=== PATIENT | female | born 1960 | race Caucasian/White ===

== ENCOUNTER 2017-01-01 09:30 | Emergency (ER) | payer OTHER ==
[~2017-01-01] VITALS: Ht 157.5 cm; Wt 69.0 kg
[~2017-01-01 09:30] MED LIST: ASPI-664 PO; GABA300C16 PO; METF1000 PO; NIAC500T81 PO; RANI150C11 PO; SIMV40TA3 PO; TRAM50TA2 PO
[2017-01-01 09:32] VITALS: Ht 157.5 cm; Wt 69.0 kg
--- NOTE | 2017-01-01 11:02 | ERD ---
ER Documentation Chief Complaint Date/Time DATE: 01/01/17 TIME: 10:45 Chief Complaint intermittent diarrhea x 2 monthd HPI 56 y/o female with history of DM and HTN. Presents to ED c/o 2 months with intermittent episodes of watery, green diarrhea approx. x4/day. Denies blood or mucus. No fever, chills, no abdominal pain. Treatment attempted: Pepto Bismol with moderate improvement, no sick contact. No history of recent traveling. States that 4 months ago had a Salmonella infection and the symptoms are similar. (+) suspicious food. ROS All systems reviewed and are negative except as per history of present illness. Medications Home Meds Reported Medications Simvastatin (Simvastatin) 40 Mg Tablet, 40 MG PO HS 07/21/12 Niacin* (Niacin*) 500 Mg Tablet, 500 MG PO DAILY 07/21/12 Gabapentin* (Gabapentin*) 300 Mg Capsule, 300 MG PO BID 07/21/12 Tramadol HCl (Tramadol HCl) 50 Mg Tablet, 50 MG PO DAILY 07/21/12 Ranitidine Hcl (Ranitidine Hcl) 150 Mg Capsule, 150 MG PO BID 07/21/12 Metformin Hcl* (Metformin Hcl*) 1,000 Mg Tablet, 1000 MG PO BID 07/21/12 Aspirin* (Aspirin* EC) 81 Mg Tablet.dr, 81 MG PO DAILY 07/21/12 [Unk] No Conflict Check 04/03/09 Allergies Allergies: Coded Allergies: No Known Drug Allergies (Verified Allergy, Mild, 01/01/17) PMhx/Soc History of Surgery: Yes (CARDIAC CATH,c SECTION,R CATARACT) Hx Neurological Disorder: No Hx Respiratory Disorders: No Hx Cardiac Disorders: Yes (CAD) Hx Miscellaneous Medical Probl: Yes (Htn, DM, Arthritis, Osteoporosis) Hx Alcohol Use: No Hx Substance Use: No Hx Tobacco Use: No Smoking Status: Never smoker Physical Exam Vitals Vital Signs Date Time Temp Pulse Resp B/P Pulse Ox O2 Delivery O2 Flow Rate FiO2 01/01/17 09:32 97.8 96 16 142/60 97 Physical Exam Const: [] Head: Atraumatic Eyes: Normal Conjunctiva ENT: Normal External Ears, Nose and Mouth. Neck: Full range of motion..~ No meningismus. Resp: Clear to auscultation bilaterally Cardio: Regular rate and rhythm, no murmurs Abd: Soft, non tender, non distended. Normal bowel sounds Skin: No petechiae or rashes Back: No midline or flank tenderness Ext: No cyanosis, or edema Neur: Awake and alert Psych: Normal Mood and Affect Procedures/MDM Low suspicion for acute abdomen. Physical exam unremarkable. Per patient, Colonoscopy 1 year ago WNL. Differential includes viral, bacterial infection, medications side effects, gastroparesis. We recommend f/u with PMD in 4-7 days. If the doctor is unavailable and the symptoms persist or worsen, the patient should return to ED Departure Diagnosis: Primary Impression: Gastroenteritis, infectious, presumed Additional Impression: Diarrhea Condition: Stable DINA MCKEON MD Jan 01, 2017 10:58
[2017-01-01] MEDS ORDERED: CIPR500T4 PO (11:04)
[2017-01-01] MEDS ORDERED: DIPH1TAB PO (11:04)
[2017-01-01] MEDS ORDERED: GUAI120L41 PO (11:55)
[2017-01-01 11:59] VITALS: BP 129/66; PULSE 72; RESP 19; TEMP 98.4
== END 2017-01-01 12:00 | disposition home or self-care (01) ==
LOC: FTE 09:30
DX: R19.7 Diarrhea, unspecified (principal); I25.10 Atherosclerotic heart disease of native coronary artery without angina pectoris; I10 Essential (primary) hypertension; E11.9 Type 2 diabetes mellitus without complications; Z79.82 Long term (current) use of aspirin; Z79.84 Long term (current) use of oral hypoglycemic drugs
CPT/HCPCS: 99283

== ENCOUNTER 2018-10-15 17:25 | Emergency (ER) | payer OTHER ==
[~2018-10-15] VITALS: Ht 160 cm; Wt 74.5 kg
[~2018-10-15 17:25] MED LIST changes: -ASPI-664 PO; +ASPI-817 PO; +CIPR500T4 PO; +DIPH1TAB PO; +GUAI120L41 PO; -METF1000 PO; +METF100010 PO
[2018-10-15 18:40] VITALS: Ht 160 cm; Wt 74.5 kg
--- NOTE | 2018-10-15 19:56 | EN ---
Date/Time of Note Date/Time of Note DATE: 10/15/18 TIME: 19:55 ER Progress Note 58-year-old female with history of diabetes insulin dependent, hypertension, hyperlipidemia presents for bilateral leg swelling and pain x1 week. She went to her primary care doctor about 2 days ago was given injections into both feet however she states that the pain has not improved. Medical screening exam initiated and lab/imaging tests ordered. Patient will be seen by another provider. AISLINN MAZARIEGOS DO Oct 15, 2018 19:56
[2018-10-15] MEDS ORDERED: POTA10TA37 PO (21:44)
[2018-10-15] MEDS ORDERED: FURO-110 PO (21:44)
--- NOTE | 2018-10-15 21:47 | ERD ---
ER Documentation Chief Complaint Chief Complaint TOE INJ ROS All systems reviewed and are negative except as per history of present illness. Medications Home Meds Active Scripts Potassium Chloride* (K-Dur*) 10 Meq Tab.prt.sr, 10 MEQ PO DAILY for 14 Days, #14 TAB Prov:AISLINN MAZARIEGOS DO 10/15/18 Furosemide* (Lasix*) 20 Mg Tablet, 20 MG PO DAILY for leg swelling, #14 TAB Prov:AISLINN MAZARIEGOS 10/15/18 Guaifenesin/Codeine Phosphate (Codeine-Guaifen 10-100 mg/5 ml) 120 Ml Liquid, 120 ML PO QHS PRN for COUGH for 5 Days Prov:DINA MCKEON MD 01/01/17 Diphenoxylate HCl/Atropine (Lomotil 2.5-0.025 mg Tablet) 1 Each Tablet, 1 TAB PO Q6H PRN for DIARRHEA for 5 Days, TAB Prov:DINA MCKEON MD 01/01/17 Ciprofloxacin Hcl* (Ciprofloxacin Hcl*) 500 Mg Tablet, 250 MG PO BID for 5 Days, TAB Prov:DINA MCKEON MD 01/01/17 Reported Medications Simvastatin (Simvastatin) 40 Mg Tablet, 40 MG PO HS 07/21/12 Niacin* (Niacin*) 500 Mg Tablet, 500 MG PO DAILY 07/21/12 Gabapentin* (Gabapentin*) 300 Mg Capsule, 300 MG PO BID 07/21/12 Tramadol HCl (Tramadol HCl) 50 Mg Tablet, 50 MG PO DAILY 07/21/12 Ranitidine Hcl (Ranitidine Hcl) 150 Mg Capsule, 150 MG PO BID 07/21/12 Metformin Hcl* (Metformin Hcl*) 1,000 Mg Tablet, 1000 MG PO BID 07/21/12 Aspirin* (Aspirin* EC) 81 Mg Tablet.dr, 81 MG PO DAILY 07/21/12 [Unk] No Conflict Check 04/03/09 Allergies Allergies: Coded Allergies: No Known Drug Allergies (Verified Allergy, Mild, 01/01/17) PMhx/Soc History of Surgery: Yes (CARDIAC CATH,c SECTION,R CATARACT) Hx Neurological Disorder: No Hx Respiratory Disorders: No Hx Cardiac Disorders: Yes (CAD) Hx Psychiatric Problems: No Hx Miscellaneous Medical Probl: Yes (Htn, DM, Arthritis, Osteoporosis) Hx Alcohol Use: No Hx Substance Use: No Hx Tobacco Use: No Smoking Status: Never smoker Physical Exam Vitals Vital Signs Date Temp Pulse Resp B/P (MAP) Pulse Ox O2 O2 Flow FiO2 Time Delivery Rate 10/15/18 98.1 94 18 145/86 96 18:40 (105) Physical Exam Const: No acute distress Head: Atraumatic Eyes: Normal Conjunctiva ENT: Normal External Ears, Nose and Mouth. Neck: Full range of motion. No meningismus. Resp: Clear to auscultation bilaterally Cardio: Regular rate and rhythm, no murmurs Abd: Soft, non tender, non distended. Normal bowel sounds Skin: No petechiae or rashes Back: No midline or flank tenderness Ext: No cyanosis, or edema Neur: Awake and alert Psych: Normal Mood and Affect Result Diagram: 10/15/18201910/15/182018 Results 24 hrs Laboratory Tests Test 10/15/18 20:19 10/15/18 20:20 Sodium Level 142 mmol/L Potassium Level 5.0 mmol/L Chloride Level 109 mmol/L Carbon Dioxide Level 26 mmol/L Anion Gap 7 Blood Urea Nitrogen 36 mg/dl Creatinine 0.83 mg/dl Est Glomerular Filtrat Rate mL/min > 60 mL/min Glucose Level 106 mg/dl Calcium Level 10.0 mg/dl Total Bilirubin 0.3 mg/dl Direct Bilirubin 0.00 mg/dl Indirect Bilirubin 0.3 mg/dl Aspartate Amino Transf (AST/SGOT) 29 IU/L Alanine Aminotransferase (ALT/SGPT) 30 IU/L Alkaline Phosphatase 102 IU/L B-Type Natriuretic Peptide 322 PG/ML Total Protein 7.7 g/dl Albumin 4.0 g/dl Globulin 3.70 g/dl Albumin/Globulin Ratio 1.08 White Blood Count 11.6 10^3/ul Red Blood Count 3.37 10^6/ul Hemoglobin 10.3 g/dl Hematocrit 32.4 % Mean Corpuscular Volume 96.1 fl Mean Corpuscular Hemoglobin 30.6 pg Mean Corpuscular Hemoglobin Concent 31.8 g/dl Red Cell Distribution Width 12.7 % Platelet Count 407 10^3/UL Mean Platelet Volume 9.9 fl Immature Granulocytes % 0.300 % Neutrophils % 50.7 % Lymphocytes % 30.4 % Monocytes % 5.4 % Eosinophils % 12.5 % Basophils % 0.7 % Nucleated Red Blood Cells % 0.0 /100WBC Immature Granulocytes # 0.040 10^3/ul Neutrophils # 5.9 10^3/ul Lymphocytes # 3.5 10^3/ul Monocytes # 0.6 10^3/ul Eosinophils # 1.4 10^3/ul Basophils # 0.1 10^3/ul Nucleated Red Blood Cells # 0.0 10^3/ul Departure Diagnosis: Primary Impression: Leg swelling Condition: Fair Patient Instructions: Peripheral Edema, Bilateral Referrals: [facility] YOU HAVE RECEIVED A MEDICAL SCREENING EXAM AND THE RESULTS INDICATE THAT YOU DO NOT HAVE A CONDITION THAT REQUIRES URGENT TREATMENT IN THE EMERGENCY DEPARTMENT. FURTHER EVALUATION AND TREATMENT OF YOUR CONDITION CAN WAIT UNTIL YOU ARE SEEN IN YOUR DOCTORS OFFICE WITHIN THE NEXT 1-2 DAYS. IT IS YOUR RESPONSIBILITY TO MAKE AN APPOINTMENT FOR FOLOW-UP CARE. IF YOU HAVE A PRIMARY DOCTOR --you should call your primary doctor and schedule an appointment IF YOU DO NOT HAVE A PRIMARY DOCTOR YOU CAN CALL OUR PHYSICIAN REFERRAL HOTLINE AT IF YOU CAN NOT AFFORD TO SEE A PHYSICIAN YOU CAN CHOSE FROM THE FOLLOWING [facility] [address] [facility] [address] [employer] [facility] [facility] [address] [facility] [facility] [address] [facility] [facility] [facility] [address] [facility] [facility]. [address] Additional Instructions: Llame al doctor MAANA y gallito fidelia KAY PARA DENTRO DE 1-2 CLARKE.Dgale a la secretaria que nosotros le instruimos hacer esta kay.Avise o llame si astudillo condicin se empeora antes de la kay. Regresa aqui si peor o no mejor. AISLINN MAZARIEGOS DO Oct 15, 2018 21:47
[2018-10-15 22:01] VITALS: BP 185/79; PULSE 84; RESP 16
== END 2018-10-15 22:02 | disposition home or self-care (01) ==
LOC: FTE 17:25
DX: M79.89 Other specified soft tissue disorders (principal); I10 Essential (primary) hypertension
CPT/HCPCS: 36415; 73600; 80053; 83880; 85025; Z7502